=== PATIENT | male | born 1955 | race Caucasian/White ===

== ENCOUNTER 2016-05-09 17:05 | Emergency (ER) | payer MEDICAID ==
[~2016-05-09] VITALS: Ht 167.6 cm; Wt 86.0 kg
[2016-05-09] MEDS ORDERED: KETOROLAC 60MG/2ML VIAL IM ONE (18:00)
[2016-05-09] MEDS ORDERED: BACITRACIN ZINC OINT UDPKT TOP ONE (19:45)
[2016-05-09 20:30] VITALS: BP 125/86
== END 2016-05-09 20:30 | disposition home or self-care (01) ==
LOC: ER 17:06
DX: S01.21XA Laceration without foreign body of nose, initial encounter (principal); S00.83XA Contusion of other part of head, initial encounter; G44.209 Tension-type headache, unspecified, not intractable; Y04.0XXA Assault by unarmed brawl or fight, initial encounter; Y92.488 Other paved roadways as the place of occurrence of the external cause
CPT/HCPCS: 70150; 96372; 99284; J1885; X7700; Z7610

== ENCOUNTER 2018-06-12 12:09 | Emergency (ER) | payer MEDICAID ==
[~2018-06-12] VITALS: Ht 165.1 cm; Wt 82.0 kg
[2018-06-12 12:16] VITALS: BP 129/89
== END 2018-06-12 15:51 | disposition left against medical advice (07) ==
LOC: ER 12:09
DX: M79.601 Pain in right arm (principal); Z53.21 Procedure and treatment not carried out due to patient leaving prior to being seen by health care provider

== ENCOUNTER 2019-10-02 12:33 | Emergency (ER) | payer MEDICAID ==
[~2019-10-02] VITALS: Ht 167.6 cm; Wt 82.0 kg
[2019-10-02] MEDS ORDERED: BALANCED SALT IRRIG SOLN 15ML IR SCH (13:15)
[2019-10-02] MEDS ORDERED: AMOXICILLIN/POTASSIUM CLAVULANATE 875/125MG TAB PO SCH (13:30)
[2019-10-02] MEDS ORDERED: FLUORESCEIN SODIUM 1MG/STRIP LEFTEYE SCH (13:30)
[2019-10-02] MEDS ORDERED: IBUPROFEN 600MG TABLET PO SCH (13:30)
[2019-10-02] MEDS ORDERED: TETRACAINE 0.5% OPHTH DROPS 4ML LEFTEYE SCH (13:30)
[2019-10-02] MEDS ORDERED: TETANUS, DIPHTHERIA, PERTUSSIS VAC/PF 0.5ML (>7YR OLD) IM ONE (14:00)
[2019-10-02] MEDS ORDERED: BACITRACIN ZINC OINT UDPKT TOP ONE (15:00)
[2019-10-02 16:11] VITALS: BP 119/71
== END 2019-10-02 16:13 | disposition home or self-care (01) ==
LOC: ER 12:33
DX: S01.352A Open bite of left ear, initial encounter (principal); S41.051A Open bite of right shoulder, initial encounter; S00.03XA Contusion of scalp, initial encounter; S50.12XA Contusion of left forearm, initial encounter; F17.210 Nicotine dependence, cigarettes, uncomplicated; Y08.02XA Assault by strike by baseball bat, initial encounter; Y04.1XXA Assault by human bite, initial encounter; Y93.89 Activity, other specified; Y92.488 Other paved roadways as the place of occurrence of the external cause
CPT/HCPCS: 70480; 73080; 73090; 99285

== ENCOUNTER 2020-09-17 09:56 | Emergency (ER) | payer MEDICAID ==
[~2020-09-17] VITALS: Ht 165.1 cm; Wt 73.0 kg
[2020-09-17] MEDS ORDERED: ACETAMINOPHEN 325MG TABLET PO STA (10:22)
[2020-09-17] MEDS ORDERED: SODIUM CHLORIDE 0.9% 1,000 ML IV ONE (10:30)
[2020-09-17 11:27] LABS: BASOPHILS % 0.4 % (0.0-2.0); EOSINOPHILS % 0.1 % (0.0-5.0); HEMATOCRIT. 37.2 % (42.0-52.0); HEMOGLOBIN. 13.3 g/dL (14.0-18.0); LYMPHOCYTES % 7.1 % (20.0-50.0); MEAN CORPUSCULAR HEMOGLOBIN 32.5 pg (28.0-32.0); MEAN CORPUSCULAR VOLUME 90.9 fL (80.0-94.0); MEAN PLATELET VOLUME 7.8 fl (7.4-10.4); NEUTROPHILS % 87.4 % (40.0-76.0); PLATELET 167 x1000/uL (130-400); RED BLOOD CELL COUNT 4.09 mill/uL (4.7-6.1); RED CELL DISTRIBUTION WIDTH 13.7 % (11.6-14.6)
[2020-09-17 11:35] LABS: CHLORIDE 104 mEq/L (98-107)
[2020-09-17 11:37] LABS: CLARITY URINE CLEAR (CLEAR); COLOR URINE YELLOW (YELLOW); KETONES URINE NEGATIVE (NEGATIVE); LEUKOCYTE ESTERASE URINE NEGATIVE (NEGATIVE); NITRITE URINE NEGATIVE (NEGATIVE); OCCULT BLOOD URINE 3+ (NEGATIVE); PH URINE 5.5 (4.5-8.0); PROTEIN URINE 1+ (NEGATIVE); SPECIFIC GRAVITY URINE 1.025 (1.005-1.030); UROBILINOGEN URINE 0.2 E.U./dL (0.2-1.0)
[2020-09-17 12:33] LABS: INR 1.1; PROTHROMBIN TIME 11.3 sec (9.6-11.0)
[2020-09-17 13:26] VITALS: BP 134/84
== END 2020-09-17 13:28 | disposition home or self-care (01) ==
LOC: ER 09:56
DX: R50.9 Fever, unspecified (principal); Z20.822 Contact with and (suspected) exposure to COVID-19
CPT/HCPCS: 36415; 71045; 80053; 81003; 85025; 85610; 87040; 93005; 96360; 99285; C9803; J7030; U0003; U0005

== ENCOUNTER 2020-09-21 10:50 | Inpatient (IN) | payer MEDICAID, OTHER ==
[~2020-09-21] VITALS: Ht 165.1 cm; Wt 68.0 kg
[2020-09-21 14:04] LABS: HEMATOCRIT. 43.4 % (42.0-52.0); HEMOGLOBIN. 14.9 g/dL (14.0-18.0); MEAN CORPUSCULAR HEMOGLOBIN 31.3 pg (28.0-32.0); MEAN CORPUSCULAR VOLUME 90.9 fL (80.0-94.0); MEAN PLATELET VOLUME 9.9 fl (7.4-10.4); PLATELET 145 x1000/uL (130-400); RED BLOOD CELL COUNT 4.77 mill/uL (4.7-6.1); RED CELL DISTRIBUTION WIDTH 14.8 % (11.6-14.6)
[2020-09-21 14:44] LABS: CHLORIDE 72 mEq/L (98-107)
[2020-09-21 15:38] LABS: PLATELET ESTIMATE NORMAL
[2020-09-21] MEDS ORDERED: SODIUM CHLORIDE 0.9% 1000ML BAG (SEPSIS BOLUS) IV ONE (17:00)
[2020-09-21] MEDS ORDERED: PIPERACILLIN/TAZ 3.375G PREMIX 50 ML IV ONE (17:00)
[2020-09-21 17:41] LABS: CLARITY URINE CLOUDY (CLEAR); COLOR URINE DARK YELLOW (YELLOW); KETONES URINE 1+ (NEGATIVE); LEUKOCYTE ESTERASE URINE NEGATIVE (NEGATIVE); NITRITE URINE NEGATIVE (NEGATIVE); OCCULT BLOOD URINE 3+ (NEGATIVE); PH URINE 5.5 (4.5-8.0); PROTEIN URINE 1+ (NEGATIVE); SPECIFIC GRAVITY URINE 1.023 (1.005-1.030)
[2020-09-21 17:54] LABS: INR 1.1; PROTHROMBIN TIME 12.2 sec (9.6-11.0)
[2020-09-21 19:00] LABS: BG BASE EXCESS 0.1 mmol/L (-2.0-2.0); BG CARBOXYHEMOGLOBIN 0.8 % (0.5-1.5); BG DEOXYHEMOGLOBIN 5.4 % (0.0-5.0); BG FRACTION INSPIRED OXYGEN 21; BG HCO3 ACT 20.6 mmol/L (22.0-26.0); BG METHEMOGLOBIN 0.2 % (0.0-1.5); BG OXYGEN SATURATION 94.5 % (92.0-98.5); BG OXYHEMOGLOBIN 93.6 % (94.0-97.0); BG PCO2 24.6 mmHg (35.0-45.0); BG PH 7.541 (7.350-7.450); BG PO2 67.7 mmHg (75.0-100.0); BG SAMPLE SITE LEFT RADIAL; BG VENT MODE ROOM AIR
[2020-09-21] MEDS ORDERED: ACETAMINOPHEN 325MG TABLET PO ONE (19:00)
[2020-09-22] MEDS ORDERED: ONDANSETRON HCL 4MG/2ML INJ IV PRN (02:00)
[2020-09-22] MEDS ORDERED: MAGNESIUM/ALUMINUM HYDROXIDE/SIMETHICONE 30ML UDC PO PRN (02:00)
[2020-09-22] MEDS ORDERED: ACETAMINOPHEN 325MG TABLET PO PRN (02:00)
[2020-09-22] MEDS ORDERED: DIPHENHYDRAMINE 50MG/ML VIAL IV PRN (02:00)
[2020-09-22] MEDS ORDERED: MVI, ADULT NO.1 10 ML, FOLIC ACID 1 MG, THIAMINE HCL 100 MG in SODIUM CHLORIDE 0.9% 1,0... IV NR ×2 (02:00→04:00)
[2020-09-22] MEDS ORDERED: LEVOFLOXACIN 500MG PREMIX 100 ML IV NR (03:00)
[2020-09-22] MEDS: SODIUM CHLORIDE 0.9% 1,000 ML IV SCH ×2 (09:59→20:08)
[2020-09-22 10:00] VITALS: BP 139/73
[2020-09-22] MEDS: ACETAMINOPHEN 325MG TABLET PO PRN ×2 (12:00→20:10)
[2020-09-22 12:33] VITALS: BP 120/72
[2020-09-22] MEDS ORDERED: CEFTRIAXONE 1 G PREMIX 50 ML IV SCH (16:00)
[2020-09-22 16:35] VITALS: BP 126/65
[2020-09-22] MEDS ORDERED: CEFTRIAXONE 1,000 MG in DEXTROSE 5% WATER 50 ML IV SCH ×2 (17:00→20:00)
[2020-09-22 18:09] LABS: *AMPHETAMINES SCREEN URINE NEGATIVE (NEGATIVE); *BARBITURATES SCREEN URINE NEGATIVE (NEGATIVE); *BENZODIAZEPINES SCREEN URINE NEGATIVE (NEGATIVE); *COCAINE SCREEN URINE NEGATIVE (NEGATIVE)
[2020-09-22 18:10] LABS: CANNABINOID URINE SCREEN PRESUMTIVE POSITIVE (NEGATIVE); METHADONE URINE SCREEN NEGATIVE (NEGATIVE); OPIATES URINE SCREEN NEGATIVE (NEGATIVE); PHENCYCLIDINE URINE SCREEN NEGATIVE (NEGATIVE)
[2020-09-22 20:00] VITALS: BP 109/67
[2020-09-22] MEDS: DOXYCYCLINE HYCLATE 100MG CAPSULE PO SCH (20:08)
[2020-09-23] VITALS: BP 91/63
[2020-09-23] MEDS: ACETAMINOPHEN 325MG TABLET PO PRN ×3 (00:16→20:19)
[2020-09-23] MEDS: SODIUM CHLORIDE 0.9% 1,000 ML IV SCH ×2 (03:12→16:55)
[2020-09-23 04:00] VITALS: BP 102/63
[2020-09-23 06:38] LABS: CHLORIDE 106 mEq/L (98-107)
[2020-09-23 06:42] LABS: HEMATOCRIT. 34.6 % (42.0-52.0); HEMOGLOBIN. 12.1 g/dL (14.0-18.0); MEAN CORPUSCULAR HEMOGLOBIN 31.9 pg (28.0-32.0); MEAN CORPUSCULAR VOLUME 91.3 fL (80.0-94.0); MEAN PLATELET VOLUME 10.1 fl (7.4-10.4); PLATELET 81 x1000/uL (130-400); RED BLOOD CELL COUNT 3.79 mill/uL (4.7-6.1); RED CELL DISTRIBUTION WIDTH 13.5 % (11.6-14.6)
[2020-09-23 06:50] LABS: CREATINE KINASE 84 IU/L (39-308)
[2020-09-23 08:00] VITALS: BP 108/49
[2020-09-23] MEDS: DOXYCYCLINE HYCLATE 100MG CAPSULE PO SCH ×2 (08:27→21:57)
[2020-09-23 08:41] LABS: HEPATITIS B SURFACE ANTIGEN REACTIVE PEND CONFIR
[2020-09-23] MEDS ORDERED: LEVOFLOXACIN 500MG PREMIX 100 ML IV SCH (09:00)
[2020-09-23 12:00] VITALS: BP 91/61
[2020-09-23 16:00] VITALS: BP 99/69
[2020-09-23] MEDS: CEFTRIAXONE 1,000 MG in DEXTROSE 5% WATER 50 ML IV SCH (18:06)
[2020-09-23 18:44] LABS: PLATELET ESTIMATE DECREASED
[2020-09-23 20:00] VITALS: BP 99/56
[2020-09-24 00:30] VITALS: BP 99/64
[2020-09-24] MEDS: SODIUM CHLORIDE 0.9% 1,000 ML IV SCH ×3 (01:24→20:28)
[2020-09-24 04:00] VITALS: BP 105/69
[2020-09-24 06:33] LABS: HEMATOCRIT. 35.8 % (42.0-52.0); HEMOGLOBIN. 12.3 g/dL (14.0-18.0); MEAN CORPUSCULAR HEMOGLOBIN 31.4 pg (28.0-32.0); MEAN CORPUSCULAR VOLUME 91.4 fL (80.0-94.0); MEAN PLATELET VOLUME 10.3 fl (7.4-10.4); PLATELET 69 x1000/uL (130-400); RED BLOOD CELL COUNT 3.92 mill/uL (4.7-6.1)
[2020-09-24] MEDS: DOXYCYCLINE HYCLATE 100MG CAPSULE PO SCH ×2 (09:04→20:28)
[2020-09-24 09:43] VITALS: BP 113/79
[2020-09-24 12:10] VITALS: BP 103/74
[2020-09-24] MEDS: ACETAMINOPHEN 325MG TABLET PO PRN (12:12)
[2020-09-24 16:00] VITALS: BP 93/66
[2020-09-24 16:34] LABS: PLATELET ESTIMATE DECREASED
[2020-09-24] MEDS: CEFTRIAXONE 1,000 MG in DEXTROSE 5% WATER 50 ML IV SCH (17:51)
[2020-09-24 20:00] VITALS: BP_SYST 103; BP_SYST 107; BP_DIAS 67; BP_DIAS 69
[2020-09-25] VITALS: BP 121/81
[2020-09-25 04:00] VITALS: BP 96/56
== END 2020-09-25 18:12 | disposition left against medical advice (07) | DRG 723 ==
LOC: ER 10:50 → MICUSO 19:01 → EDBEDREQ 19:02 → EDBEDREQTM 19:02 → 6WST 09-22 08:45
PROVIDERS: ADMIT Internal Medicine; ATTEND Internal Medicine
DX: B34.9 Viral infection, unspecified (principal); G93.41 Metabolic encephalopathy; E43 Unspecified severe protein-calorie malnutrition; D69.6 Thrombocytopenia, unspecified; E87.2 Acidosis; M43.17 Spondylolisthesis, lumbosacral region; Z20.822 Contact with and (suspected) exposure to COVID-19; B18.1 Chronic viral hepatitis B without delta-agent; Z53.29 Procedure and treatment not carried out because of patient's decision for other reasons; Z59.0 Homelessness; Z68.25 Body mass index [BMI] 25.0-25.9, adult; F12.929 Cannabis use, unspecified with intoxication, unspecified
CPT/HCPCS: 36415; 36600; 71045; 74176; 80048; 80053; 80305; 81003; 82375; 82550; 82805; 83605; 84145; 84443; 84484; 85025; 85651; 86038; 86140; 86635; 86757; 86803; 87340; 87426; 93005; 93306; 99291; C1893; J0696; J1956; J2543; J3411; J3490; J7030; J7040; J7060